=== PATIENT | male | born 1955 | race Caucasian/White ===

== ENCOUNTER 2023-07-26 13:25 | Day surgery (SDC) | payer MEDICARE, SELFPAY ==
[2023-07-26] VITALS (11 sets, daily range): BP systolic 82–165; BP diastolic 47–101; PULSE 95–132; RESP 14–21; TEMP 36.3–36.6; O2SAT 95–100
--- NOTE | ~2023-07-26 | XR_ITS ---
EXAMINATION: XR chest 1V portable Exam Date/Time: 07/26/2023 15:40 CDT HISTORY: Post procedure Comparison: 07/26/2023 at 1:57 PM. RESULT: Lines, tubes, and devices: Endotracheal tube terminating 2.5 cm above the laine. Lungs and pleura: Low lung volumes with crowding. Mild diffuse interstitial opacities. No focal cons olidation, pleural effusion, or pneumothorax. Cardiomediastinal silhouette: Stable. Other: No acute osseous or upper abdominal finding. IMPRESSION: Mild diffuse interstitial opacities may represent mild edema and/or crowding. Low positioned endotrac heal tube, consider 1.5 cm retraction. Reviewed, dictated and finalized at location K. IMPRESSION: Mild diffuse interstitial opacities may represent mild edema and/or crowding. L ow positioned endotracheal tube, consider 1.5 cm retraction.
--- NOTE | ~2023-07-26 | XR_ITS ---
EXAMINATION: XR chest 1V portable Exam Date/Time: 07/26/2023 13:52 CDT HISTORY: choking, poss food stuck in esophagus Comparison: None. RESULT: Lines, tubes, and devices: None. Lungs and pleura: Clear. Cardiomediastinal silhouette: Normal. Other: No acute osseous or upper abdominal finding. IMPRESSION: No acute cardiopulmonary process. Reviewed, dictated and finalized at location K.
[2023-07-26] MEDS: GLUCAGON FOR INJ 1 MG VIAL IM (14:00)
--- NOTE | 2023-07-26 14:02 | ED.GENADULT ---
HPI - General Adult General Chief complaint: Unspecified Stated complaint: choking Time Seen by Provider: 07/26/23 13:43 History of Present Illness HPI narrative: 67-year-old male presenting to the emergency department for evaluation after having a choking episode. Patient was eating cheese burger and fries when initially felt that he was choking on a [place] morin. Patient is unable to handle his secretions at this time. Patient denies any shortness of breath and denied any difficulty breathing during any of this episode. Patient attempted to drink water while in the emergency department and was unable to. Related Data Allergies Allergy/AdvReac Type Severity Reaction Status Date / Time No Known Allergies Allergy Verified 07/26/23 15:13 Review of Systems Review of Systems: All systems reviewed & are unremarkable except as noted in HPI and below PMFSH Past Medical History Medical History (Updated 07/26/23 @ 18:58 by Medardo Puri MD) De Luna esophagus Food impaction of esophagus Exam Narrative: APPEARANCE: Well appearing, no pain, no distress, well-nourished. HEAD: normocephalic, atraumatic. EYES: PERRLA/EOMI, conjunctivae clear. NOSE: Normal no drainage EARS:TMS clear with good light reflex. THROAT: Pharynx clear, no exudate. No visualized foreign body or posterior pharynx edema NECK: Supple. No adenopathy, no masses. RESPIRATORY: Lungs are clear to auscultation bilaterally CARDIOVASCULAR: Regular rate and rhythm without murmurs rubs or gallops. ABDOMINAL: Soft, nontender, nondistended, normal bowel sounds MUSCULOSKELETAL: Moves all extremities. Strength/ROM intact, No edema, No calf tenderness. NEURO: Alert. Cranial nerves II through XII intact. Grossly intact SKIN: Warm, dry. Normal Color Course Course Emergency Course: Patient was taken to GI lab for esophageal food bolus disimpaction Vital Signs Vital signs: Vital Signs Temperature 97.3 F L 07/26/23 13:27 Pulse Rate 125 H 07/26/23 13:27 Respiratory Rate 18 07/26/23 13:27 Blood Pressure 165/84 H 07/26/23 13:27 Pulse Oximetry 98 07/26/23 13:27 Oxygen Delivery Room Air 07/26/23 13:27 Temperature 97.9 F 07/26/23 15:13 Pulse Rate 95 07/26/23 16:58 Respiratory Rate 20 07/26/23 16:58 Blood Pressure 110/71 07/26/23 16:58 Pulse Oximetry 96 07/26/23 16:58 Oxygen Delivery Room Air 07/26/23 16:58 Oxygen Flow Rate 10 07/26/23 16:08 Medical Decision Making MDM Narrative Medical decision making narrative: 67-year-old male presenting to the ED after checking episode and unable to handle his own secretions. Attempted a p.o. trial with water and patient failed. Patient was treated with IM glucagon. Patient had no improvement with this. Case was discussed with GI and patient was taken to the lab for evaluation. Differential Diagnosis Differential Diagnosis: Improved airway, food esophagus, esophageal stricture, aspiration Vital Signs Vital Signs: Vital Signs Temperature 97.3 F L 07/26/23 13:27 Pulse Rate 125 H 07/26/23 13:27 Respiratory Rate 18 07/26/23 13:27 Blood Pressure 165/84 H 07/26/23 13:27 Pulse Oximetry 98 07/26/23 13:27 Oxygen Delivery Room Air 07/26/23 13:27 Temperature 97.9 F 07/26/23 15:13 Pulse Rate 95 07/26/23 16:58 Respiratory Rate 20 07/26/23 16:58 Blood Pressure 110/71 07/26/23 16:58 Pulse Oximetry 96 07/26/23 16:58 Oxygen Delivery Room Air 07/26/23 16:58 Oxygen Flow Rate 10 07/26/23 16:08 Lab Data Lab results reviewed: Yes I reviewed the patient's lab results. 07/26/23 13:58 07/26/23 13:58 Labs: Lab Results 07/26/23 07/26/23 Range/Units 13:57 13:58 WBC 14.5 H (4.5-10.0) K/mm3 RBC 5.47 (4.6-6.20) M/mm3 Hgb 15.9 (14.0-18.0) g/dL Hct 47.2 (42.0-52.0) % MCV 86.3 (80-100) fl MCH 29.1 (26-34) pg MCHC 33.7 (32-36) g/dl RDW 14.0 (11.5-14.5) % Plt Count 301 (150
[2023-07-26 14:06] LABS: Basophils Absolute Auto 0.1 K/mm3 (0.0-0.1); Eosinophils Absolute Auto 0.5 K/mm3 (0-0.3); Eosinophils Percent Auto 3.2 % (0-4.4); Hematocrit 47.2 % (42.0-52.0); Hemoglobin 15.9 g/dL (14.0-18.0); Immature Granulocyte Absolute 0.07 K/mm3 (0.00-0.031); Immature Granulocyte Percent A 0.5 % (0-0.5); Lymphocytes Absolute Auto 3.71 K/mm3 (0.9-3.2); Lymphocytes Percent Auto 25.6 % (18.3-44.2); Mean Corpuscular HGB Conc 33.7 g/dl (32-36); Mean Corpuscular Hemoglobin 29.1 pg (26-34); Mean Corpuscular Volume 86.3 fl (80-100); Mean Platelet Volume 9.9 fl (7.4-10.4); Monocytes Absolute Auto 1.1 K/mm3 (0.1-0.6); Monocytes Percent Auto 7.6 % (2.6-8.5); Neutrophils Percent Auto 62.1 % (45.5-73.1); Platelet Count Result 301 k/mm3 (150-375); Red Blood Count 5.47 M/mm3 (4.6-6.20); White Blood Count 14.5 K/mm3 (4.5-10.0)
[2023-07-26 14:17] LABS: Partial Thromboplastin Time 24.2 Seconds (22.3-36.8); Prothrombin Time 13.2 Seconds (11.1-14.7)
[2023-07-26 14:24] LABS: Alanine Aminotransferase 65 U/L (6-50); Albumin Level 4.5 g/dL (3.5-5.1); Alkaline Phosphatase 88 U/L (38-126); Anion Gap 15 mmol/L (4-12); Aspartate Amino Transferase 44 U/L (17-59); Bilirubin,Total 0.9 mg/dL (0.2-1.3); Blood Urea Nitrogen 18 mg/dL (9-20); Calcium 9.9 mg/dL (8.4-10.2); Carbon Dioxide 20 mmol/L (22-30); Chloride 105 mmol/L (98-107); Estimated CRCL calculation 75 ml/min; Estimated Glomerular Filt Rate > 60; Glucose 173 mg/dL (65-110); Potassium 3.6 mmol/L (3.4-5.0); Sodium 140 mmol/L (137-145)
[2023-07-26] MEDS: LACTATED RINGERS 1,000 ML 150 ML IV CONT ×2 (15:18→15:21)
--- NOTE | 2023-07-26 15:20 | PM.HPGS ---
History of Present Illness History of Present Illness Consent: Risks, benefits, and alternatives have been discussed and questions answered. Patient agrees to proceed with procedure. Chief complaint: choking Narrative: Ehsan Sethi is a 67 year old male here for food bolus after having burger for lunch, since unable to even swallow own saliva, treated in ER with glucagon but still no difference, never had EGD. Review of Systems Review of Systems: All systems reviewed & are unremarkable except as noted in HPI and below PMFSH Past Medical History Medical History (Updated 07/26/23 @ 15:22 by Yakov Cervantes MD) Food impaction of esophagus Meds Home Medications and Allergies Allergies Allergy/AdvReac Type Severity Reaction Status Date / Time No Known Allergies Allergy Verified 07/26/23 15:13 Vital Signs Vital Signs - 24 hr 07/26/23 13:27 07/26/23 14:04 07/26/23 14:04 Temperature 97.3 F L Pulse Rate 125 H 128 H Respiratory Rate 18 18 Blood Pressure 165/84 H Pulse Oximetry 98 98 Oxygen Delivery Room Air 07/26/23 14:04 07/26/23 15:13 07/26/23 14:55 Temperature 97.9 F Pulse Rate 132 H 125 H 127 H Respiratory Rate 17 20 14 Blood Pressure 111/78 119/91 H 107/81 Pulse Oximetry 98 99 96 Oxygen Delivery Room Air Exam Const: General: comfortable and no acute distress HENMT: Face/Nose/Sinus: Normal nares present Eyes: General: appearance normal, both eyes and all related structures Neck: Neck: no JVD Resp: Auscultation: clear to auscultation bilaterally Cardio: Rate: regular rate Rhythm: regular rhythm GI: Inspection: non-distended GI Palp: Yes Soft to palpation Skin: General skin exam: normal color Neuro: General: gait normal Speech: normal speech Extrem: General: normal to inspection Psych: Mental Status: mental status grossly normal Assessment and Plan Assessment and plan (1) Food impaction of esophagus: Code(s): T18.128A - Food in esophagus causing other injury, initial encounter; W44.F3XA - Food entering into or through a natural orifice, initial encounter Status: Acute Assessment and Plan: urgent EGD, more recommendations after scope
--- NOTE | 2023-07-26 15:42 | SUR.OPER ---
Esophageal tear seen during procedure, Per Dr. Lovell order a portable chest xray for post procedure.
--- NOTE | 2023-07-26 15:59 | WPDANESEPPF ---
Anes - Initial Pre Proc Eval Procedure: Operation Date: 07/26/23 15:00 Proposed Procedures p Esophagogastroduodenoscopy EGD - Yakov Cervantes MD Date/Time: 07/26/23 15:59 Surgeon: Yakov Cervantes MD Pre Op Diagnosis: choking Patient Data Age: 67 Gender: M Height: 1.83 m Weight: 125 kg Last Vital Signs Temp 36.6 C 07/26/23 15:13 Pulse 125 H 07/26/23 15:13 Resp 20 07/26/23 15:13 BP 119/91 H 07/26/23 15:13 Pulse Ox 99 07/26/23 15:13 O2 Del Method Room Air 07/26/23 15:13 Allergies Allergy/AdvReac Type Severity Reaction Status Date / Time No Known Allergies Allergy Verified 07/26/23 15:13 Laboratory Tests 07/26/23 07/26/23 13:57 13:58 WBC 14.5 H K/mm3 (4.5-10.0) RBC 5.47 M/mm3 (4.6-6.20) Hgb 15.9 g/dL (14.0-18.0) Hct 47.2 % (42.0-52.0) MCV 86.3 fl (80-100) MCH 29.1 pg (26-34) MCHC 33.7 g/dl (32-36) RDW 14.0 % (11.5-14.5) Plt Count 301 k/mm3 (150-375) MPV 9.9 fl (7.4-10.4) Immature Gran % (Auto) 0.5 % (0-0.5) Neut % (Auto) 62.1 % (45.5-73.1) Lymph % (Auto) 25.6 % (18.3-44.2) [place] % (Auto) 7.6 % (2.6-8.5) Eos % (Auto) 3.2 % (0-4.4) Baso % (Auto) 1.0 % (0.2-1.2) Lymph # (Auto) 3.71 H K/mm3 (0.9-3.2) [place] # (Auto) 1.1 H K/mm3 (0.1-0.6) Eos # (Auto) 0.5 H K/mm3 (0-0.3) Baso # (Auto) 0.1 K/mm3 (0.0-0.1) Abs Immat Gran (auto) 0.07 H K/mm3 (0.00-0.031) Absolute Neuts (auto) 9.0 H K/mm3 (1.3-6.7) Absolute Nucleated RBC 0.000 K/mm3 (0.0-0.012) Nucleated RBC % 0.0 % (0.0-0.2) PT 13.2 Seconds (11.1-14.7) INR 1.0 APTT 24.2 Seconds (22.3-36.8) Sodium 140 mmol/L (137-145) Potassium 3.6 mmol/L (3.4-5.0) Chloride 105 mmol/L (98-107) Carbon Dioxide 20 L mmol/L (22-30) Anion Gap 15 H mmol/L (4-12) BUN 18 mg/dL (9-20) Creatinine 1.20 mg/dL (0.7-1.3) Estim Creat Clear Calc 75 ml/min Estimated GFR > 60 (59 - ) Glucose 173 H mg/dL (65-110) Calcium 9.9 mg/dL (8.4-10.2) Total Bilirubin 0.9 mg/dL (0.2-1.3) AST 44 U/L (17-59) ALT 65 H U/L (6-50) Alkaline Phosphatase 88 U/L (38-126) Total Protein 8.0 g/dL (6.3-8.2) Albumin 4.5 g/dL (3.5-5.1) Patient hx anesthesia problems: none Family hx anesthesia problems: none Results Review: All pre-operative results and documents have been reviewed as part of the pre-operative evaluation. COUNTS INCLUDE 234 BEDS AT THE [facility] Past Medical History Medical History (Updated 07/26/23 @ 15:22 by Yakov Cervantes MD) Food impaction of esophagus Anes - Eval Final PreProcedure Day of Procedure 07/26/23 15:59 Patient weight: obese Heart: regular rate and rhythm Lungs: clear to auscultation Airway: Mallampati scale class II Neurological: alert and oriented Last oral intake: >/= 8 hours ASA classification: III Emergent: yes Anesthetic plan: proceed Anesthesia type and monitoring: general (TIVA) ETT and standard monitoring Results Review: All pre-operative results and documents have been reviewed as part of the pre-operative evaluation. Informed Consent: The patient's anesthetic plan and its attendant risks and benefits were discussed with the patient/family/POA. Questions were solicited and answers provided to the satisfaction of the patient/family/POA.
== END 2023-07-26 17:00 | disposition home or self-care (01) ==
LOC: ANHED 14:08 → ANHENDO 14:51
PROVIDERS: Emergency Provider Emergency Medicine; Visit Provider Internal Medicine Gastroenterology
PROC: 0DJ08ZZ Inspection of Upper Intestinal Tract, Via Natural or Artificial Opening Endoscopic (ICD-10-PCS; CPT 43235; principal; 2023-07-26 15:00)
DX: T18.128A Food in esophagus causing other injury, initial encounter (principal); W44.F3XA Food entering into or through a natural orifice, initial encounter; K22.2 Esophageal obstruction; K22.70 Barrett's esophagus without dysplasia; R91.8 Other nonspecific abnormal finding of lung field; E66.9 Obesity, unspecified; Z68.37 Body mass index [BMI] 37.0-37.9, adult
CPT/HCPCS: 43247; 36415; 71045; 80053; 85025; 85610; 85730; 96372; 99285; J0330; J1610; J2371; J2704; J7120

== ENCOUNTER 2023-09-10 06:10 | Day surgery (SDC) | payer MEDICARE, SELFPAY ==
[2023-07-30 13:48] VITALS: BMI 37.3
[2023-09-03 14:13] VITALS: BMI 38.0
[2023-09-10 06:49] VITALS: BP 126/85; PULSE 75; RESP 18; TEMP 36.6; O2SAT 98
[2023-09-10] MEDS: LACTATED RINGERS 1,000 ML 150 ML IV CONT (07:12)
--- NOTE | 2023-09-10 07:14 | PM.HPGS ---
History of Present Illness History of Present Illness Consent: Risks, benefits, and alternatives have been discussed and questions answered. Patient agrees to proceed with procedure. Chief complaint: Dysphagia Narrative: Ehsan Sethi is a 67 year old male presents for EGD. Has a history of food impaction 6 weeks ago. Endoscopy and removal of food impaction at that time suggested severe ulcerated esophagitis. There was a question of De Luna's esophagus. Patient has been maintained on pantoprazole 40mg p.o. b.i.d. since that time. States that swallowing continues to be an issue. He has no significant heartburn. Patient did have heartburn sleep but this improved after cholecystectomy several years ago. Patient denies any weight loss or bleeding. Family history noncontributory. Patient returns today for follow-up EGD with biopsy and dilatation. Review of Systems Review of Systems: All systems reviewed & are unremarkable except as noted in HPI and below PMFSH Past Medical History Medical History (Updated 09/10/23 @ 07:17 by Morgan Solano MD) De Luna esophagus Food impaction of esophagus Social History Social History Smoking status: Never smoker Alcohol intake: never Substance use: never Substance use type: does not use Living arrangements: with family Spiritual care concerns: No Meds Home Medications and Allergies Home Medications Medication Instructions Recorded Confirmed Type pantoprazole 40 mg tablet,delayed 40 mg PO BID #60 tabs 07/26/23 09/10/23 Rx release atorvastatin 10 mg tablet 10 mg PO HS 09/03/23 09/10/23 History lisinopril 20 1 tablet PO DAILY 09/03/23 09/10/23 History mg-hydrochlorothiazide 12.5 mg tablet Allergies Allergy/AdvReac Type Severity Reaction Status Date / Time No Known Allergies Allergy Verified 09/10/23 06:47 Vital Signs Vital Signs - 24 hr 09/10/23 06:49 Temperature 97.9 F Pulse Rate 75 Respiratory Rate 18 Blood Pressure 126/85 Pulse Oximetry 98 Oxygen Delivery Room Air Exam Narrative: Physical exam reveals patient to be alert. Signs stable. HEENT exam is unremarkable. Patient is anicteric. Lungs are clear to auscultation and to percussion. Heart is without murmur or extra sounds. Abdomen bowel sounds are present soft nontender with no organomegaly.. 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 Plan for follow-up EGD with biopsy at this time. Continued long-term use pantoprazole advised. (2) Dysphagia: Code(s): R13.10 - Dysphagia, unspecified Status: Acute Assessment and Plan: Patient has a history of food impaction 6 weeks ago. Plan for follow-up EGD and dilatation.
--- NOTE | 2023-09-10 07:21 | WPDANESEPPF ---
Anes - Initial Pre Proc Eval Procedure: Operation Date: 09/10/23 08:00 Proposed Procedures p Esophagogastroduodenoscopy - Morgan Solano MD Date/Time: 09/10/23 07:21 Surgeon: Morgan Solano MD Pre Op Diagnosis: Dysphagia Patient Data Age: 67 Gender: M Height: 1.83 m Weight: 125.6 kg Last Vital Signs Temp 36.6 C 09/10/23 06:49 Pulse 75 09/10/23 06:49 Resp 18 09/10/23 06:49 BP 126/85 09/10/23 06:49 Pulse Ox 98 09/10/23 06:49 O2 Del Method Room Air 09/10/23 06:49 Allergies Allergy/AdvReac Type Severity Reaction Status Date / Time No Known Allergies Allergy Verified 09/10/23 06:47 Home Medications Medication Instructions Recorded Confirmed Type pantoprazole 40 mg tablet,delayed 40 mg PO BID #60 tabs 07/26/23 09/10/23 Rx release atorvastatin 10 mg tablet 10 mg PO HS 09/03/23 09/10/23 History lisinopril 20 1 tablet PO DAILY 09/03/23 09/10/23 History mg-hydrochlorothiazide 12.5 mg tablet Patient hx anesthesia problems: none Family hx anesthesia problems: none Results Review: All pre-operative results and documents have been reviewed as part of the pre-operative evaluation. [facility] Past Medical History Medical History (Updated 09/10/23 @ 07:21 by David Jo MD) De Luna esophagus Food impaction of esophagus Obesity Surgical History Surgical History (Updated 09/10/23 @ 07:24 by David Jo MD) History of cholecystectomy History of esophagogastroduodenoscopy (EGD) History of shoulder surgery Social History Social History Smoking status: Never smoker Alcohol intake: never Substance use: never Substance use type: does not use Living arrangements: with family Spiritual care concerns: No Anes - Eval Final PreProcedure Day of Procedure 09/10/23 07:21 Patient weight: obese Heart: regular rate and rhythm Lungs: clear to auscultation Airway: Mallampati scale class II Neurological: alert and oriented Last oral intake: >/= 8 hours ASA classification: III Emergent: no Anesthetic plan: proceed Anesthesia type and monitoring: general GIVS and standard monitoring Results Review: All pre-operative results and documents have been reviewed as part of the pre-operative evaluation. Informed Consent: The patient's anesthetic plan and its attendant risks and benefits were discussed with the patient/family/POA. Questions were solicited and answers provided to the satisfaction of the patient/family/POA.
[2023-09-10 08:03] VITALS: BP 103/64; PULSE 85; RESP 15; O2SAT 97
[2023-09-10 08:15] VITALS: BP 114/90; PULSE 73; RESP 15; O2SAT 98
[2023-09-10 08:25] VITALS: BP 123/81; PULSE 65; RESP 15; O2SAT 97
--- NOTE | 2023-09-10 08:35 | WPDANESPN ---
Anes - Prog Note Post-Op Date/Time: 09/10/23 08:35 Cardiovascular status: normal Respiratory status: normal Airway patency: baseline Mental status: baseline Post-Op hydration status: normal Vital Signs: Last Vital Signs Temp 36.6 C 09/10/23 06:49 Pulse 73 09/10/23 08:15 Resp 15 09/10/23 08:15 BP 114/90 09/10/23 08:15 Pulse Ox 98 09/10/23 08:15 O2 Del Method Room Air 09/10/23 08:15 Pain Score (VAS): 0/10 I/O: Intake & Output 09/09/23 09/10/23 09/10/23 23:59 07:59 15:59 Intake Total 100 Balance 100 Patient Feedback: Patient satisfied with anesthetic care.
== END 2023-09-10 08:45 | disposition home or self-care (01) ==
PROVIDERS: PCP Family Medicine; Visit Provider Internal Medicine Gastroenterology
PROC: 0DJ08ZZ Inspection of Upper Intestinal Tract, Via Natural or Artificial Opening Endoscopic (ICD-10-PCS; CPT 43235; principal; 2023-09-10 08:00)
DX: K22.70 Barrett's esophagus without dysplasia (principal); R13.19 Other dysphagia; K22.2 Esophageal obstruction; K21.9 Gastro-esophageal reflux disease without esophagitis
CPT/HCPCS: 43450; 43239

== ENCOUNTER 2023-09-11 07:06 | Outpatient (NON) | payer MEDICARE, SELFPAY | END 2023-09-11 07:07 | disposition home or self-care (01) | LOC: ANHLAB 07:08 | PROVIDERS: PCP Family Medicine; Visit Provider Internal Medicine Gastroenterology | DX: K22.70 Barrett's esophagus without dysplasia (principal) | CPT/HCPCS: 88305 ==